=== PATIENT | female | born 1995 | race Caucasian/White ===

== ENCOUNTER 2017-08-16 01:51 | Emergency (ER) | payer OTHER ==
[2017-08-16] MEDS ORDERED: LORazepam INJ* 2 MG/ML 1 ML VIAL IM ONE (01:55)
[2017-08-16] MEDS ORDERED: Ondansetron ODT TAB* 4 MG PO ONE (01:55)
--- NOTE | 2017-08-16 02:11 | ED ---
Lower Extremity - HPI Summary HPI Summary: 20-year-old female presents with left knee pain today. She states she was walking out of the shower and she twisted her knee and felt her left knee dislocate. 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 She states she had an MRI 3 weeks ago because she has chronic knee pain. MRI shows that is prone to dislocation. She follows with an orthopedist back home. She gets steroid injections in bilateral knees. She has had surgery on the right knee. She denies any numbness or tingling. She shows he has a small laceration on her left foot that is actively bleeding. Her immunizations are up-to-date. She has 10/10 pain. - History of Current Complaint Chief Complaint: EDExtremityLower Stated Complaint: LT KNEE INJURY Time Seen by Provider: 08/16/17 01:54 Pain Intensity: 10 - Allergies/Home Medications Allergies/Adverse Reactions: Allergies Allergy/AdvReac Type Severity Reaction Status Date / Time Amoxicillin Allergy Hives Verified 08/16/17 01:52 PMH/Surg Hx/FS Hx/Imm Hx Endocrine/Hematology History: Denies: Hx Anticoagulant Therapy Cardiovascular History: Denies: Hx Hypertension Infectious Disease History: No Infectious Disease History: Denies: Traveled Outside the [place] in Last 30 Days - Family History Known Family History: Positive: Hypertension - Social History Alcohol Use: Occasionally Substance Use Type: Reports: None Smoking Status (MU): Never Smoked Tobacco Review of Systems Negative: Fever Negative: Chest Pain Negative: Shortness Of Breath Positive: Myalgia - left knee Positive: Other - laceration left knee All Other Systems Reviewed And Are Negative: Yes Physical Exam Triage Information Reviewed: Yes Vital Signs On Initial Exam: Initial Vitals Temp Pulse Resp BP Pulse Ox 97.7 F 83 18 133/74 99 08/16/17 01:54 08/16/17 01:54 08/16/17 01:54 08/16/17 01:54 08/16/17 01:54 Vital Signs Reviewed: Yes Appearance: Positive: Well-Appearing Skin: Positive: Warm, Dry, Other - 1/2cm superficial laceration of left great toe Head/Face: Positive: Normal Head/Face Inspection Eyes: Positive: Normal, Conjunctiva Clear Respiratory/Lung Sounds: Positive: Clear to Auscultation, Breath Sounds Present Cardiovascular: Positive: Normal, RRR Musculoskeletal: Positive: Limited @ - left knee, Other - pos ballotment, tenderness over left patella, good pulses, sensation grossly intact Neurological: Positive: Normal Psychiatric: Positive: Normal Procedures - Laceration/Wound Repair 1 Location: Other - left knee Description: Linear Length, Depth and Shape: 1/2cm superficial Irrigated w/ Saline (ccs): 40 Laceration/Wound Explored: clean Closure: Skin Adhesive Diagnostics - Vital Signs Vital Signs Temp Pulse Resp BP Pulse Ox 08/16/17 01:54 97.7 F 83 18 133/74 99 - Laboratory Lab Statement: Any lab studies that have been ordered have been reviewed, and results considered in the medical decision making process. - Radiology knee Xray Interpretation: Positive (See Comments) - no fracture, possible subluxation Radiology Interpretation Completed By: ED Physician Lower Extremity Course/Dx - Course Course Of Treatment: 20-year-old female presents with left knee pain today. She states she was walking out of the shower and she twisted her knee and felt her left knee dislocate. 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 She states she had an MRI 3 weeks ago because she has chronic knee pain. She follows with an orthopedist back home. She gets steroid injections in bilateral knees. She has had surgery on the right knee. She denies any numbness or tingling. She shows he has a small laceration on her left foot that is actively bleeding. Her immunizations are up-to-date. She has 10/10 pain. EMS placed splint. Neurovascularly intact. Has half a centimeter superficial laceration of great toe that is actively bleeding cleaned laceration in place. xray read by me as possible subluxation of patella. patient refuses to bend knee due to pain. place in immbolizer and have follow up with ortho. patient understand and agrees with plan. - Diagnoses Differential Diagnosis/HQI/PQRI: Positive: Dislocation, Fracture (Closed), Sprain, Strain Provider Diagnoses: Laceration of left foot, Dislocation of left patella Discharge - Discharge Plan Condition: Good Disposition: HOME Patient Education Materials: Skin Adhesive Care (ED), Patellar Dislocation (ED) Referrals: Brant Holm MD [Medical Doctor] - John Maria MD [Medical Doctor] - Additional Instructions: Keep knee in immbolizer Take Tylenol or ibuprofen every 6 hours as needed for pain Apply ice, rest, elevate Follow up with ortho Keep laceration dry for 24 hours Glue will fall off on own Return to ED if develop any new or worsening symptoms
[2017-08-16] MEDS ORDERED: Ibuprofen TAB* 800 MG PO ONE (02:26)
[2017-08-16 03:18] VITALS: BP 113/70
--- NOTE | 2017-08-16 07:37 | RAD ---
INDICATION: Left injury. History of patellar dislocation COMPARISON: None TECHNIQUE: AP and lateral views were obtained. FINDINGS: There is an avulsion fracture from the inferior patella. The patella is displaced laterally. There are no additional significant bony findings. There is a large joint effusion. IMPRESSION: AVULSION FRACTURE FROM THE INFERIOR PATELLA WITH LATERAL SUBLUXATION OF THE PATELLA. JOINT EFFUSION
== END 2017-08-16 03:16 | disposition home or self-care (01) ==
LOC: ED 01:51
DX: S82.092A Other fracture of left patella, initial encounter for closed fracture (principal); S91.112A Laceration without foreign body of left great toe without damage to nail, initial encounter; X50.1XXA Overexertion from prolonged static or awkward postures, initial encounter; Y93.01 Activity, walking, marching and hiking; Y92.9 Unspecified place or not applicable; Z88.1 Allergy status to other antibiotic agents
CPT/HCPCS: 12001; 99282